=== PATIENT | female | born 1990 ===

== ENCOUNTER 2019-03-28 07:07 | Inpatient (IN) | payer OTHER ==
[2019-03-28] MEDS: ELECTROLYTE-148 SOLN 500 ML IV SCH (07:30)
[2019-03-28] MEDS ORDERED: AMPICILLIN - 2 GM in SODIUM CHLORIDE 100 ML IVPB ONE (07:30)
[2019-03-28 08:26] VITALS: BMI 30.4
[2019-03-28] MEDS: ELECTROLYTE-148 SOLN 1,000 ML IV SCH (08:30)
[2019-03-28 08:49] LABS: BASO % 0.3 % (0-2.0); EOS % 1.3 % (0-4.5); HEMATOCRIT 32.1 % (32.4-45.2); HEMOGLOBIN 10.4 GM/dL (10.7-15.3); LYMPH % 25.7 % (8-40); MCH 24.9 pg (25.7-33.7); MCHC 32.4 g/dl (32.0-36.0); MEAN CELL VOLUME 76.9 fl (80-96); MEAN PLT VOLUME 8.5 fl (7.5-11.1); MONO % 11.6 % (3.8-10.2); NEUT % 61.1 % (42.8-82.8); PLATELET COUNT 184 K/MM3 (134-434); RBC 4.17 M/mm3 (3.60-5.2); RDW 19.1 % (11.6-15.6); WHITE BLOOD COUNT 5.9 K/mm3 (4.0-10.0)
[2019-03-28 08:59] LABS: BLOOD UREA NITROGEN 8.9 mg/dL (7-18); CALCIUM 8.9 mg/dL (8.5-10.1); CREATININE 0.6 mg/dL (0.55-1.3); POTASSIUM 4.4 mmol/L (3.5-5.1)
[2019-03-28] MEDS ORDERED: FENTANYL/BUPIVACAINE/NS/PF - PCEA - 50 ML DISP.SYRIN EP ONE (09:01)
[2019-03-28 09:31] LABS: INR 0.87 (0.83-1.09); PROTHROMBIN TIME (PATIENT) 10.2 SEC (9.7-13.0)
[2019-03-28 09:33] LABS: ACTIVATED PTT 29.4 SECONDS (25.2-36.5)
[2019-03-28] MEDS ORDERED: NALOXONE HCL 0.4 MG/ML VIAL IVPUSH PRN (10:43)
[2019-03-28] MEDS ORDERED: FENTANYL/BUPIVACAINE/NS/PF - PCEA - 50 ML DISP.SYRIN EP SCH (10:45)
[2019-03-28] MEDS: AMPICILLIN - 1 GM in SODIUM CHLORIDE 100 ML IVPB SCH ×2 (11:45→15:41)
[2019-03-28] MEDS ORDERED: OXYTOCIN 20 UNITS in 0.9% NS 20 UNIT/1,000 ML INFUS.BAG IV ONE ×2 (13:14→14:52)
[2019-03-28] MEDS: OXYTOCIN 20 UNITS in 0.9% NS 20 UNIT/1,000 ML INFUS.BAG IV SCH ×2 (13:43→17:00)
[2019-03-28] MEDS ORDERED: BENZOCAINE 20% 57 GM BOTTLE TP PRN (13:57)
[2019-03-28] MEDS ORDERED: METHYLERGONOVINE MALEATE 0.2 MG/1 ML AMP IM PRN (13:57)
[2019-03-28] MEDS ORDERED: oxyCODONE HCL 5 MG TABLET PO PRN (13:57)
[2019-03-28] MEDS ORDERED: WITCH HAZEL 50% (TUCKS) 40 PAD/JAR PAD TP PRN (13:57)
[2019-03-28] MEDS ORDERED: BISACODYL 10 MG SUPP.RECT RC PRN (13:57)
[2019-03-28] MEDS ORDERED: BENZOCAINE 28 GM HEMORRHOIDAL OINTMENT TP PRN (13:57)
--- NOTE | 2019-03-28 14:02 | HP ---
Past Medical History - Admission Chief Complaint: active laboring History of Present Illness: none History Source: Patient Limitations to Obtaining History: No Limitations - Past Medical History DIGITAL EXPERIENCE MANAGER: No: Alzheimer's, CVA, Dementia, Migraine, Multiple Sclerosis, Peripheral Neuropathy, Parkinson's, Seizure, Syncope, TIA, Vertigo, Other Cardiovascular: No: AFIB, Aneurysm, Aortic Insufficiency, Aortic Stenosis, CAD, CHF, Deep Vein Thrombosis, HTN, Hyperlipdemia, [place], Mitral Insufficiency, Mitral Stenosis, Murmur, Pulmonary Hypertension, Other Pulmonary: No: Asthma, Bronchitis, Cancer, COPD, O2 Dependent, Pneumonia, Previously Intubated, Pulmonary Embolus, Pulmonary Fibrosis, Sleep Apnea, Other Gastrointestinal: No: Ascites, Cancer, Constipation, Crohn's Disease, Diverticulitis, Diverticulosis, Esophageal Varices, Gastritis, GERD, GI Bleed, Hemorrhoids, Hiatal Hernia, Inflamatory Bowel Disease, Irritable Bowel Disease, Pancreatitis, Peptic Ulcer Disease, Ulcerative Colitis, Other Hepatobiliary: No: Cirrhosis, Cholelithiasis, Cholecystitis, Choledocholithiasis , Hepatitis A, Hepatitis B, Hepatitis C, Other Renal/: No: Renal Failure, Renal Inusuff, BPH, Cancer, Hematuria, Hemodialysis , Neurogenic Bladder, Renal Calculi, UTI, Other Reproductive: No: Ectopic , Endometriosis, Fibroids, PID, Polycystic Ovary Syndrome, Postmenopausal, Other ...: 3 ...Para: 2 ...Term: 2 ...: 0 ...Spon : 0 ...Induced : 0 ...Multiple Gestation: 0 ...EDC by Ashli: 03/25/19 Heme/Onc: No: Anemia, B12 Deficiency, Bleeding Disorder, Cancer, Current Chemotherapy, Current Radiation Therapy, Hemochromatosis, Hypercoaguable State, Myeloproliferative Synd, Sickle Cell Disease, Sickle Cell Trait, Thrombocytopenia, Other Infectious Disease: No: AIDS, C-Diff, Herpes Zoster, HIV, MRSA, STD's, Tuberculosis, VREF, Other Psych: No: Addictions, Anxiety, Bipolar, Depression, Panic, Psychosis, Schizophrenia, Other Musculoskeletal: No: Bursitis, Chronic low back pain, Hemiparesis, Hemiplegia, Osteoarthritis, Paraplegia, Other Rheumatology: No: Fibromyalgia, Gout, Lupus, Rheumatoid Arthritis, Sarcoidosis, Vasculitis, Other ENT: No: Allergic Rhinitis, Sinusitis, Other Endocrine: No: Grainger's Disease, Willard's Disease, Diabetes Insipidus, Diabetes Mellitus, Hyperparathyroidism, Hyperthyroidism, Hypothyroidism, Osteopenia, SIADH, Other Dermatology: No: Basal Cell, Cellulitis, Eczema, Melanoma, Psoriasis, Squamous Cell, Other - Past Surgical History Past Surgical History: No: None, AAA Repair, AICD, Amputation, Appendectomy, Arthrosocopy, AV Fistula/Graft, Bariatric Surgery, Breast Biopsy, Bypass, CABG, Carotid Endarterectomy, Cataract Removal, Cholecystectomy, Colectomy, Colonoscopy, Colostomy, Craniotomy, , Cystectomy, Hernia Repair, Hysterectomy, Ileal Conduit, Ileosotomy, Joint Replacement, Kidney Transplant, Laminectomy, Liver Transplant, Mastectomy, Nephrectomy, Oopherectomy, Orchiectomy, Permanent Pacemaker, Prostatectomy, Splenectomy, Stent, Thoracotomy , TURP, Tonsillectomy, Tubal Ligation, Upper Endoscopy, Valve Replacement, Vasectomy, Vein Stripping/Ligation Hx Myomectomy: No Hx Transabdominal Cerclage: No - Advance Directives Advance Directives: Yes: Living Will - Smoking History Smoking history: Never smoked Have you smoked in the past 12 months: No - Alcohol/Substance Use Hx Alcohol Use: No History of Substance Use: reports: None - Social History Usual Living Arrangement: Yes: Alone Do you think of yourself as: Straight/Heterosexual ADL: Independent History of Recent Travel: No Home Medications - Allergies Allergies/Adverse Reactions: Allergies Allergy/AdvReac Type Severity Reaction Status Date / Time No Known Allergies Allergy Verified 03/28/19 08:14 - Home Medications Home Medications: Ambulatory Orders Ferrous Sulfate [Iron] 325 mg PO DAILY 03/28/19 Vit No.130/Iron/Folic [ Tablet] 1 tab PO DAILY 03/28/19 Family Medical History Family History: Denies Review of Systems - Review of Systems Constitutional: reports: No Symptoms Eyes: reports: No Symptoms HENT: reports: No Symptoms Neck: reports: No Symptoms Cardiovascular: reports: No Symptoms Respiratory: reports: No Symptoms Gastrointestinal: reports: No Symptoms Genitourinary: reports: No Symptoms Breasts: reports: No Symptoms Reported Musculoskeletal: reports: No Symptoms Integumentary: reports: No Symptoms Neurological: reports: No Symptoms Endocrine: reports: No Symptoms Hematology/Lymphatic: reports: No Symptoms Psychiatric: reports: No Symptoms Physical Exam - Maternity Vital Signs: Vital Signs Temperature 98.2 F 03/28/19 10:00 Pulse Rate 80 03/28/19 10:30 Respiratory Rate 17 03/28/19 10:30 Blood Pressure 135/78 03/28/19 10:30 O2 Sat by Pulse Oximetry (%) 100 03/28/19 10:30 Constitutional: Yes: Well Nourished, No Distress, Calm Eyes: Yes: WNL, Conjunctiva Clear, EOM Intact HENT: Yes: WNL, Atraumatic, Normocephalic Neck: Yes: WNL, Supple, Trachea Midline Cardiovascular: Yes: WNL, Regular Rate and Rhythm Lungs: Clear to auscultation Breast(s): Yes: WNL - Abdominal Exam/OB Fundal Height: 38 Number of Fetuses: Single Presentation: Vertex Contractions: Yes Regularity: Regular Intensity: Mod/Strong Monitor Mode: External Heart Rate Location: Q Accelerations: Uniform Decelerations: None - Vaginal Exam/OB Vaginal Bleediing: No Speculum Exam: No Dilatation (cm): 4 Effacement (%): 70 Amniotic Membrane Status: Intact Meconium: Light Presentation: Vertex/Position Station: -2 - Physical Exam Musculoskeletal: Yes: WNL Extremities: Yes: WNL Edema: Yes Edema: LUE: 1+, RUE: 1+, LLE: 1+ Integumentary: Yes: WNL Deep Tendon Reflex Grade: Normal +2 ...Motor Strength: WNL Psychiatric: Yes: WNL, Alert, Oriented - Labs Lab Results: CBC, BMP 03/28/19 07:50 03/28/19 07:50 Assessment/Plan for epidural and laboring
--- NOTE | 2019-03-28 14:06 | PN ---
Progress Note (short form) - Note Progress Note: 11 am , 8 cm, -2, 100%, uc q 5 min, comfort w epidural , continue laboring
--- NOTE | 2019-03-28 14:07 | PN ---
Delivery - Delivery Vaginal Delivery: No Problems Type of Anesthesia: Epidural Episiotomy/Laceration: 1st degree EBL (cc): 250 Delivery, Single - Stages of Labor Date 1st Stage Initiatied: 03/28/19 Date 2nd Stage Initiated: 03/28/19 Date of Delivery: 03/28/19 Date Placenta Delivered: 03/28/19 Placenta: Yes: Spontaneous - Condition of Computer Systems Security Analyst/Heading Machine Operator Present: No Infant Gender: Male Position: Left, OA - Feeding Plan Initial Plan: Exclusive throughout hospitalization - Additional Information: can x 1 . no complications
[2019-03-28] MEDS ORDERED: IBUPROFEN 600 MG TABLET (FP) PO ONE (14:11)
[2019-03-28] MEDS: IBUPROFEN 600 MG TABLET (FP) PO PRN (14:15)
[2019-03-28] MEDS: ACETAMINOPHEN 325 MG TABLET (FP) PO PRN (14:15)
[2019-03-29] MEDS: IBUPROFEN 600 MG TABLET (FP) PO PRN ×2 (04:49→21:30)
[2019-03-29] MEDS: ACETAMINOPHEN 325 MG TABLET (FP) PO PRN ×2 (04:50→21:30)
[2019-03-29 09:59] LABS: BASO % 0.4 % (0-2.0); EOS % 1.5 % (0-4.5); HEMATOCRIT 29.8 % (32.4-45.2); HEMOGLOBIN 9.7 GM/dL (10.7-15.3); LYMPH % 19.9 % (8-40); MCHC 32.5 g/dl (32.0-36.0); MEAN CELL VOLUME 76.8 fl (80-96); MEAN PLT VOLUME 8.5 fl (7.5-11.1); MONO % 6.8 % (3.8-10.2); NEUT % 71.4 % (42.8-82.8); PLATELET COUNT 171 K/MM3 (134-434); RBC 3.87 M/mm3 (3.60-5.2); RDW 18.6 % (11.6-15.6); WHITE BLOOD COUNT 8.8 K/mm3 (4.0-10.0)
[2019-03-29] MEDS: ELECTROLYTE-148 SOLN 1,000 ML IV SCH (15:01)
[2019-03-29] MEDS: OXYTOCIN 20 UNITS in 0.9% NS 20 UNIT/1,000 ML INFUS.BAG IV SCH (15:01)
[2019-03-29] MEDS: ELECTROLYTE-148 SOLN 500 ML IV SCH (15:01)
--- NOTE | 2019-03-29 20:42 | PN ---
Post Progress Note Post Day: 1 Type of Delivery: Vital Signs: Vital Signs Temperature 98.1 F 03/29/19 14:00 Pulse Rate 90 03/29/19 14:00 Respiratory Rate 18 03/29/19 14:00 Blood Pressure 130/77 03/29/19 14:00 O2 Sat by Pulse Oximetry (%) 100 03/28/19 14:30 Breast Exam: Yes: Soft Uterus: Yes: Fundus Firm, Fundus below umbilicus Abdomen/GI: Yes: Abdomen soft, Passing flatus, Tolerating PO Lochia, amount: Small Extremities: Yes: Calves non-tender Perineum: Yes: Intact Activity: Ambulating - Labs Labs: CBC WBC 8.8 K/mm3 (4.0-10.0) 03/29/19 09:05 RBC 3.87 M/mm3 (3.60-5.2) 03/29/19 09:05 Hgb 9.7 GM/dL (10.7-15.3) L 03/29/19 09:05 Hct 29.8 % (32.4-45.2) L 03/29/19 09:05 MCV 76.8 fl (80-96) L 03/29/19 09:05 MCH 25.0 pg (25.7-33.7) L 03/29/19 09:05 MCHC 32.5 g/dl (32.0-36.0) 03/29/19 09:05 RDW 18.6 % (11.6-15.6) H 03/29/19 09:05 Plt Count 171 K/MM3 (134-434) 03/29/19 09:05 MPV 8.5 fl (7.5-11.1) 03/29/19 09:05 Absolute Neuts (auto) 6.3 K/mm3 (1.5-8.0) 03/29/19 09:05 Neutrophils % 71.4 % (42.8-82.8) 03/29/19 09:05 Lymphocytes % 19.9 % (8-40) D 03/29/19 09:05 Monocytes % 6.8 % (3.8-10.2) 03/29/19 09:05 Eosinophils % 1.5 % (0-4.5) 03/29/19 09:05 Basophils % 0.4 % (0-2.0) 03/29/19 09:05 Nucleated RBC % 0 % (0-0) 03/29/19 09:05
--- NOTE | 2019-03-29 20:44 | DS ---
Physical Exam-LAP LAYER Vital Signs: Vital Signs Temperature 98.1 F 03/29/19 14:00 Pulse Rate 90 03/29/19 14:00 Respiratory Rate 18 03/29/19 14:00 Blood Pressure 130/77 03/29/19 14:00 O2 Sat by Pulse Oximetry (%) 100 03/28/19 14:30 Constitutional: Yes: Well Nourished, No Distress, Calm Eyes: Yes: WNL, Conjunctiva Clear, EOM Intact HENT: Yes: WNL, Atraumatic, Normocephalic Neck: Yes: WNL, Supple, Trachea Midline Cardiovascular: Yes: WNL, Regular Rate and Rhythm Respiratory: Yes: WNL, Regular, CTA Bilaterally Gastrointestinal: Yes: WNL, Normal Bowel Sounds, Soft ...Rectal Exam: Yes: WNL Renal/: Yes: WNL Pelvis: Yes: WNL External Genitalia: Yes: Normal Internal Exam Deferred: Yes Vaginal Exam: Yes: Normal Cervix: Yes: Normal Uterus: Yes: Normal Adnexa: Normal: Bilateral ....Post : Yes: Uterus firm, Uterus non-tender Breast(s): Yes: WNL Musculoskeletal: Yes: WNL Extremities: Yes: WNL Edema: Yes Integumentary: Yes: WNL Wound/Incision: Yes: Clean/Dry, Well Approximated Neurological: Yes: WNL, Alert, Oriented ...Motor Strength: WNL Psychiatric: Yes: WNL, Alert, Oriented Labs: CBC, BMP 03/29/19 09:05 03/28/19 07:50 Delivery - Delivery Vaginal Delivery: No Problems Type of Anesthesia: Epidural Episiotomy/Laceration: 1st degree EBL (cc): 250 Delivery, Single - Stages of Labor Date 1st Stage Initiatied: 03/28/19 Time 1st Stage Initiated: 02:00 Date 2nd Stage Initiated: 03/28/19 Time 2nd Stage Initiated: 13:10 Date of Delivery: 03/28/19 Time of Delivery: 13:42 Time Placenta Delivered: 13:43 Placenta: Yes: Spontaneous - Condition of Infant Associate Dean Of Women/Car Wiper Present: No Infant Gender: Male Weight: 3.402 kg Position: Left, OA Total Hours ROM (Hrs/Mins): 33 minutes - 1 Minute Total Score: 9 5 Minutes Total Score: 9 - [place] Feeding Plan Initial Plan: Exclusive throughout hospitalization Discharge Summary Problems reviewed: Yes Reason For Visit: LABOR Procedures: Principal: Condition: Good - Instructions Diet, Activity, Other Instructions: Physical activity Resume your normal everyday activity as tolerated no heavy lifting or exercise until seen by your surgeon. You may walk unlimited mary of and climb stairs. You may resume driving the car when you feel safe and comfortable behind the wheel. No sexual activity as instructed. Wound care If you have a bandage, leave it on, and keep dry for 48-72 hours. After that time discard the outer bandage. If they are tapes on the skin under the out of bandage leave them in place. They will peel off in the next 7 to 10 days. Do Not Peel them off. You may shower the day after surgery. If there are tapes present on the skin, you may shower over them. Diet There are no dietary restrictions. Eat healthy, high-fiber foods. Drink 6 to 8 glasses of liquid each day. This will assist in keeping your bowels are regular. Pain management You may take Tylenol or acetaminophen or Ibuprofen (for example, Motrin, Advil etc.) from my pain prescription medication is ordered should be taken as prescribed for moderate to severe pain. Call MD for any of the following: call dr manuel for 6 weeks appoint Severe pain not relieved by medication Fever of 101 or higher Excessive bleeding or drainage on dressing Inability to urinate Disposition: HOME - Home Medications Comprehensive Discharge Medication List: Ambulatory Orders Ferrous Sulfate [Iron] 325 mg PO DAILY 03/28/19 Vit No.130/Iron/Folic [ Tablet] 1 tab PO DAILY 03/28/19 Prescription Drug Monitoring Program (I-STOP) results: I-STOP reviewed and no issues identified
[2019-03-29] MEDS ORDERED: SENNOSIDES/DOCUSATE COMBO (SENNA PLUS) TABLET (UD) PO PRN (22:00)
[2019-03-30] MEDS: AMPICILLIN - 1 GM in SODIUM CHLORIDE 100 ML IVPB SCH (07:18)
[2019-03-30 11:22] VITALS: BP 134/75; PULSE 86; TEMP 98.6
== END 2019-03-30 13:30 | disposition home or self-care (01) | DRG 807 ==
LOC: JLDR 07:07 → J3W 19:43
PROVIDERS: ADMIT Obstetrics & Gynecology; ATTEND Obstetrics & Gynecology
PROC: 10E0XZZ Delivery of Products of Conception, External Approach (ICD-10-PCS; principal; 2019-03-28)
PROC: 0HQ9XZZ Repair Perineum Skin, External Approach (ICD-10-PCS; 2019-03-28)
PROC: 0W8NXZZ Division of Female Perineum, External Approach (ICD-10-PCS; 2019-03-28)
DX: O70.0 First degree perineal laceration during delivery (principal); Z37.0 Single live birth; Z3A.40 40 weeks gestation of pregnancy
CPT/HCPCS: 36415; 59409; 80048; 85025; 85610; 85730; 86593; 86850; 86900; 86901; 87389